=== PATIENT | female | born 1945 | race Caucasian/White ===

== ENCOUNTER 2020-05-18 10:54 | Emergency (ER) | payer MEDICARE, BC ==
[~2020-05-18] VITALS: Ht 165.1 cm; Wt 66.2 kg
--- NOTE | 2020-05-18 11:03 | NUR ---
triage note: EKG done in triage
--- NOTE | 2020-05-18 11:28 | NUR ---
PT AMBULATORY TO ROOM 4 W/ C/O SOB AND AND NOT FEELING WELL AND DECIDED TO GO TO TO BE SEEN. HAD EKG DONE THAT SHOWED AND ABNORMALITY. PT STATES SHE WAS TOLD SHE MAY HAVE TOO HIGH OF A DOSAGE FOR SYNTHROID MEDICATION. PT STATES AT TIMES SHE HAS PALPITATIONS AND PAIN IN HER MIDDLE BACK. PT RESTING ON RevuzeRDAVID. JORDAN. VSS. MONITORS APPLIED. ERP DR. HARRIS AT BEDSIDE.
[2020-05-18 11:51] LABS: BASOPHILS # (AUTO) 0.03 x10^3/uL (0-0.1); BASOPHILS % (AUTO) 1 % (0-1); EOSINOPHILS % (AUTO) 2 % (1-7); LYMPHOCYTES # (AUTO) 0.91 x10^3/uL (1-3.4); LYMPHOCYTES % (AUTO) 14 % (22-44); MD NO; MEAN CORPUSCULAR HEMOGLOBIN 32.2 pg (27.0-34.8); MEAN CORPUSCULAR HGB CONC 33.4 g/dL (32.4-35.8); MEAN CORPUSCULAR VOLUME 96.5 fL (80-100); MEAN PLATELET VOLUME 6.5 fL (7.4-10.4); MONOCYTES # (AUTO) 0.57 x10^3/uL (0.2-0.8); MONOCYTES % (AUTO) 9 % (2-9); NEUTROPHILS # (AUTO) 5.15 x10^3/uL (1.8-6.8); NEUTROPHILS % (AUTO) 76 % (42-75); PLATELET COUNT 357 x10^3/uL (130-400); RED CELL DISTRIBUTION WIDTH 13.8 % (9.6-15.2)
[2020-05-18 12:00] LABS: ALBUMIN 4.1 g/dL (3.4-5.0); ANION GAP 7 mmol/L (5-15); CALCIUM 9.3 mg/dL (8.5-10.1); CHLORIDE 107 mmol/L (98-107)
[2020-05-18] MEDS ORDERED: SODIUM CHLORIDE 0.9% 1,000ML IVBOLUS ONE (12:00)
[2020-05-18] MEDS ORDERED: SODIUM CHLORIDE FLUSH 10ML SYR IVF ONE (12:00)
[2020-05-18 12:06] LABS: ALANINE AMINOTRANSFERASE 25 U/L (12-78); ALKALINE PHOSPHATASE 87 U/L (45-117); BILIRUBIN,TOTAL 0.5 mg/dL (0.2-1.0); CREATININE 0.84 mg/dL (0.55-1.02); FREE T4 (FREE THYROXINE) 1.02 ng/dL (0.76-1.46); TOTAL PROTEIN 7.5 g/dL (6.4-8.2); TROPONIN I < 0.015 ng/mL (0.000-0.045)
--- NOTE | 2020-05-18 14:15 | NUR ---
assumed care of pt for D/C. NS infusion completed prior to this RN entering room
[2020-05-18 14:31] VITALS: BP 142/65
== END 2020-05-18 14:36 | disposition home or self-care (01) ==
LOC: ED 13:41
DX: R00.2 Palpitations (principal); R07.89 Other chest pain; R06.02 Shortness of breath; R94.31 Abnormal electrocardiogram [ECG] [EKG]; I10 Essential (primary) hypertension; E03.9 Hypothyroidism, unspecified
CPT/HCPCS: 36415; 71045; 80053; 83605; 84439; 84443; 84484; 85025; 93005; 99285; J7030

== ENCOUNTER → 2020-06-08 | Outpatient (CLI) | payer MEDICARE, BC ==
[2020-06-08 13:21] LABS: ALBUMIN 3.9 g/dL (3.4-5.0)
[2020-06-08 13:25] LABS: BILIRUBIN, DIRECT 0.1 mg/dL (0.1-0.2); BILIRUBIN,INDIRECT 0.4 mg/dL (0.0-2.0); BILIRUBIN,TOTAL 0.5 mg/dL (0.2-1.0); CHOL/HDL RATIO 2.2; LDL/HDL RATIO 1.1 (0.5-3.0)
== END | disposition home or self-care (01) ==
LOC: CFH 07:33
PROVIDERS: ATTEND Internal Medicine Cardiovascular Disease
DX: I08.0 Rheumatic disorders of both mitral and aortic valves (principal); I10 Essential (primary) hypertension; E78.5 Hyperlipidemia, unspecified; E03.9 Hypothyroidism, unspecified
CPT/HCPCS: 36415; 80061; 80076; 93306